=== PATIENT | male | born 1965 | race Caucasian/White ===

== ENCOUNTER 2024-03-21 15:37 | Emergency (ER) | payer BC ==
[2024-03-21] MEDS ORDERED: Sodium Chloride 0.9% 10 ML Syringe FLUSH PRN (15:39)
[2024-03-21] MEDS: Aspirin 81 MG Tab.Chew PO ONE (15:51)
[2024-03-21 15:55] LABS: BASOPHILS ABSOLUTE AUTO 0.06 K/uL (0.00-0.20); BASOPHILS PERCENT AUTO 0.4 % (0.0-2.0); EOSINOPHILS ABSOLUTE AUTO 0.14 K/uL (0.00-0.50); HEMATOCRIT 48.5 % (39.0-49.0); HEMOGLOBIN 16.9 g/dL (13.1-16.8); LYMPHOCYTES ABSOLUTE AUTO 1.58 K/uL (0.50-3.50); LYMPHOCYTES PERCENT AUTO 11.7 % (10.0-50.0); MEAN CORPUSCULAR HEMOGLOBIN 31.5 pg (28.2-33.3); MEAN CORPUSCULAR HGB CONC 34.8 g/dL (31.7-36.0); MEAN CORPUSCULAR VOLUME 90.5 fL (84.0-98.0); MONOCYTES ABSOLUTE AUTO 0.99 K/uL (0.00-1.00); MONOCYTES PERCENT AUTO 7.3 % (2.0-14.0); NEUTROPHILS ABSOLUTE AUTO 10.79 K/uL (1.40-7.00); NEUTROPHILS PERCENT AUTO 79.6 % (45.0-80.0); PLATELET COUNT,PLT 204 K/uL (150-350); RED BLOOD CELL COUNT 5.36 M/uL (4.33-5.41); RED CELL DISTRIBUTION WIDTH 12.7 % (11.2-14.1); WHITE BLOOD CELL COUNT,WBC 13.6 K/uL (4.0-10.2)
[2024-03-21] MEDS: Nitroglycerin 0.4 MG Tab.SL SL PRN (15:58)
[2024-03-21 16:22] LABS: ALANINE AMINOTRANSFERASE,ALT 35 U/L (12-78); ALBUMIN 4.4 g/dL (3.4-5.0); ALKALINE PHOSPHATASE 71 IU/L (46-116); ANION GAP 9.7 meq/L (7-15); ASPARTATE AMNIOTRANSFERASE,AST 22 U/L (15-37); BILIRUBIN TOTAL 0.8 mg/dL (0.2-1.0); BLOOD UREA NITROGEN,BUN 14 mg/dL (7-18); CALCIUM 9.2 mg/dL (8.5-10.1); CARBON DIOXIDE,CO2 27.3 mmol/L (21.0-32.0); CHLORIDE,CL 102 mmol/L (98-107); CREATININE 0.97 mg/dL (0.51-1.17); ESTIMATED GFR 91 mL/min (>=60); GLUCOSE RANDOM 133 mg/dL (70-99); MAGNESIUM 2.1 mg/dL (1.8-2.4); PRO B-TYPE NATRIUR PEPT,BNPPRO 10 pg/mL (0-125); SODIUM,NA 139 mmol/L (136-145)
[2024-03-21 16:31] LABS: PROTHROMBIN TIME 10.4 SEC (9.0-11.1)
[2024-03-21] MEDS: Lidocaine 2% Viscous Solution 15 ML UD PO ONE (16:32)
[2024-03-21] MEDS: Aluminum Hydroxide/Magnesium Hydroxide/Simethicone Susp 30 ML Cup PO ONE (16:32)
[2024-03-21] MEDS: Heparin Sodium 5,000 Units/ML Vial IVPUSH ONE (16:51)
[2024-03-21] MEDS: Morphine 4 MG/ML Syringe IV ONE (16:53)
[2024-03-21] MEDS: Ondansetron 4 MG/2 ML SDV IVPUSH ONE (16:53)
[2024-03-21] MEDS: Heparin Sodium/0.45% NaCl 500 ML IV SCH (17:20)
[2024-03-21] MEDS: Tenecteplase 50 MG Kit IVPUSH ONE (17:41)
== END 2024-03-21 18:07 ==
LOC: LL.ED 15:37
DX: R07.2 Precordial pain (principal); Z79.899 Other long term (current) drug therapy
CPT/HCPCS: 36415; 71045; 80053; 83605; 83735; 83880; 84484; 85025; 85379; 85610; 85730; 93005; 93010; 96365; 96375; 96376; 99284; 99285-25; A9270-GY; J1644; J2270; J2405; J3101